=== PATIENT | female | born 1985 | race Caucasian/White ===

== ENCOUNTER 2016-12-14 12:20 | Inpatient (IN) | payer MEDICAID ==
[~2016-12-14] VITALS: Ht 143.5 cm; Wt 72.2 kg
[2016-12-14] MEDS ORDERED: PRENAT PO (13:02)
[2016-12-14] MEDS ORDERED: FERR236T PO (13:03)
[2016-12-14] MEDS ORDERED: CALC600T11 PO (13:03)
[2016-12-14 13:04] VITALS: BP 118/78; PULSE 97; RESP 18
--- NOTE | 2016-12-14 13:41 | RADRPT ---
PROCEDURE: US biophysical profile. CLINICAL INDICATION: Decreased motion. Contractions. TECHNIQUE: Multiple sonographic images of the uterus were obtained. The images were revi ewed on a PACS workstation. COMPARISON: No prior studies are available for comparison. FINDINGS: There is a single live intrauterine gestation. heart rate is 134 beats per minute. The position is cephalic. The placenta is fundal anterior grade II with no abruption or previa. The KYA is 8.7 cm. (Normal = 5-20 cm.) Breathing Movement: 2 Gross Body Movement: 2 Tone: 2 Qualitative Amniotic Fluid Volume: 2 TOTAL: 8 IMPRESSION: 1. The biophysical score is 8/8. RPTAT: QQ .Robel Lopez MD, MD Date Time Electronically viewed and signed by .Robel Lopez MD, on 12/14/2016 13:40 .R/
--- NOTE | 2016-12-14 14:52 | TRIAGE ---
OB Triage Datetime Report Generated by CPN: 12/14/2016 14:52 Datetime: 12/14/2016 14:35 Labor Evaluation Frequency: 12-13 Monitor Mode: External Duration (sec)2399: 120-150 Quality: Mild Pattern: Normal: <= 5 Contractions in 10 Minutes Resting Tone [place]: Relaxed Heart Rate FHR Baseline Rate: 130 Monitor Mode: External US FHR Baseline Changes: No Baseline Change Variability: Moderate 6-25 bpm Accelerations: 15X15 Decelerations: None Category: Category I Datetime: 12/14/2016 14:01 Labor Evaluation Frequency: 5-12 Monitor Mode: External Duration (sec)2399: 50-100 Quality: Mild Pattern: Normal: <= 5 Contractions in 10 Minutes Resting Tone [place]: Relaxed Heart Rate FHR Baseline Rate: 125 FHR Baseline Changes: No Baseline Change Variability: Moderate 6-25 bpm Accelerations: 15X15 Decelerations: None Category: Category I Pain Assessment Pain Scale: 6 Pain Presence: Intermittent Pain Type: Contraction Pain Location: Abdomen Datetime: 12/14/2016 13:12 Pool: Negative Datetime: 12/14/2016 12:51 Vaginal Exam Dilatation (cms): 0.5 Effacement (%): 40 Station: -2 Exam By: CK Vaginal Bleeding: None Cervix, Consistency: Moderate Cervix, Position: Posterior Datetime: 12/14/2016 12:41 Time of Arrival: 12/14/2016 12:15 EGA: 38.5 Arrived By: Ambulatory Arrived From: Home Chief Complaint: CONTRACTIONS - PT UNSURE WHEN THEY STARTED; PAIN OF 5/10 IN LOWER AND UPPER ABDOM EN WITH CONTRACTOINS. Movement: Present Contractions: Regular Contractions: Q15MIN Rupture of Membranes: Unsure Vaginal Bleeding: None Vaginal Discharge: Denies Abdominal Trauma: Not Applicable Patient Complaints: Contractions; Epigastric Pain Additional Patient Complaints: PT REPORTS A LOT OF FLUID AT 0400, BUT NONE RIGHT NOW Time Provider Notified: 12/14/2016 12:56 Provider Notified: DR. LUI Initial Plan: EFM x2, SVE, STERILE SPEC EXAM, ROM+, BPP Datetime: 12/14/2016 12:40 Stage of : OB Triage Assessment Type: Triage Maternal Assessment Level of Consciousness: Fully Conscious Headache: Denies Blurred Vision: No Respiratory Effort: Unlabored; Regular Rhythm; Equal Expansion Breath Sounds, Left: Clear and Equal Breath Sounds, Right: Clear and Equal Nausea/Vomiting: Denies RUQ Epigastric Pain: Denies Lower Extremities Edema: Bilateral Lower Extremities Degree: 1+ Upper Extremities Edema: None Degree: None Facial Edema: None Temperature Route: Oral Fall Risk Assessment History of Falling: (0) No Secondary Diagnosis: (0) No Ambulatory Aid: (0) Bedrest/Nurse Assist IV Therapy: (0) No Gait: (0) Normal/Bedrest/Immobile Mental Status: (0) Oriented to Own Ability Fall Score: 0 Fall Risk Score Definition: No Risk: No action required Pain Assessment Pain Scale: 5 Pain Presence: Intermittent Pain Type: Contraction Pain Location: Abdomen (Annotations: WITH CONTRACTIONS, PT FEELS PAIN IN UPPER AND LOWER ABDOMEN) Presentation 'A': Cephalic
[2016-12-14] MEDS ORDERED: MISOPROSTOL 200 MCG TAB PR PRN ×2 (15:00→22:00)
[2016-12-14] MEDS ORDERED: CEFAZOLIN 2 GM/50 ML (PMX) 50 ML IV SCH (15:00)
[2016-12-14] MEDS ORDERED: METHYLERGONOVINE 0.2 MG INJ IM PRN ×2 (15:00→22:00)
[2016-12-14] MEDS ORDERED: OXYTOCIN 30 UNITS/LR 500 ML IV SCH (15:00)
[2016-12-14] MEDS ORDERED: OXYTOCIN 30 UNITS/LR 500 ML IV PRN ×2 (15:00→22:00)
[2016-12-14] MEDS ORDERED: CARBOPROST 250 MCG INJ IM PRN ×2 (15:00→22:00)
[2016-12-14] MEDS: LACTATED RINGER'S 1,000 ML IV SCH ×3 (15:35→21:57)
[2016-12-14 15:36] LABS: ADD SCAN DIFF NO
[2016-12-14 15:42] LABS: BASOPHILS % 0.1 % (0.0-2.0); EOSINOPHILS % 0.4 % (0.0-7.0); HEMATOCRIT 42.2 % (37.0-47.0); HEMOGLOBIN 14.4 g/dl (12.0-16.0); LYMPHOCYTES # 1.8 10^3/ul (0.8-2.9); LYMPHOCYTES % 21.6 % (15.0-51.0); MEAN CORPUSCULAR HEMOGLOBIN 29.9 pg (29.0-33.0); MEAN CORPUSCULAR HGB CONC 34.1 g/dl (32.0-37.0); MEAN CORPUSCULAR VOLUME 87.6 fl (82.0-101.0); MEAN PLATELET VOLUME 11.5 fl (7.4-10.4); MONOCYTE # 0.7 10^3/ul (0.3-0.9); MONOCYTES % 8.9 % (0.0-11.0); NEUTROPHIL # 5.7 10^3/ul (1.6-7.5); NEUTROPHILS % 68.4 % (39.0-77.0); PLATELET COUNT 262 10^3/UL (140-415); RED BLOOD COUNT 4.82 10^6/ul (4.20-5.40); RED CELL DISTRIBUTION WIDTH 13.6 % (11.5-14.5); WHITE BLOOD COUNT 8.3 10^3/ul (4.8-10.8)
[2016-12-14 15:53] LABS: INR 0.83; PROTIME 11.4 Sec (12.2-14.2); PT RATIO 0.9
[2016-12-14] MEDS ORDERED: CITRIC ACID/SODIUM CITRATE 15 ML CUP PO ONE (17:30)
[2016-12-14] MEDS ORDERED: morphine SULFATE/PF (10 MG/10 ML) INJ ONE (18:11)
[2016-12-14] MEDS ORDERED: KETOROLAC 30 MG INJ ONE (18:11)
[2016-12-14] MEDS ORDERED: OXYTOCIN 30 UNITS/LR 500 ML IV ONE ×3 (18:11→21:50)
[2016-12-14] MEDS ORDERED: METOCLOPRAMIDE 10 MG INJ ONE (18:11)
[2016-12-14] MEDS ORDERED: MEPERIDINE 100 MG INJ ONE (18:58)
[2016-12-14] MEDS ORDERED: DIPHENHYDRAMINE 50 MG INJ IV PRN ×2 (19:00→20:30)
[2016-12-14] MEDS ORDERED: METOCLOPRAMIDE 10 MG INJ IV PRN (19:00)
[2016-12-14] MEDS ORDERED: MEPERIDINE 25 MG INJ IV PRN (19:00)
[2016-12-14] MEDS ORDERED: HYDROmorphONE (0.2 MG/ML) 10ML SYG IV PRN ×3 (19:00)
--- NOTE | 2016-12-14 20:21 | HP ---
DATE OF ADMISSION: 12/14/2016 HISTORY OF PRESENT ILLNESS: The patient is a 31-year-old G6, P4 who presents at 38-1/2 weeks compla ining of uterine contractions on a regular basis, ____ vaginal bleeding, positive movement. PAST MEDICAL HISTORY: None. PAST SURGICAL HISTORY: x3. OBSTETRIC HISTORY: x2. MEDICATIONS: vitamins. VITAL SIGNS: Stable. PHYSICAL EXAMINATION: HEART: Regular rhythm. LUNGS: Clear to auscultation bilaterally. ABDOMEN: Soft, nontender. No rebound, no guarding. Fundal height is 39 cm. EXTREMITIES: There is no edema. PELVIC: Vaginal exam: Os is open 1 cm. NST is a category 1 tracing with regular uterine contracti ons. The patient complaining of 8/10 pain. ASSESSMENT: Intrauterine at 38-1/2 weeks. The patient had history previous x3, presents in early labor. The patient at this point will be consented for repeat section. The patient also desires bilateral tubal ligation. Risks of surgery discussed. Risk include infec tion, bleeding, damage to organs, possibility of blood transfusion, discussed with patient. The pat ient understands risks and consents to procedure. The patient also consents to bilateral tubal liga tion. Explained that possibly of 5 to 10 failures out of 1000 and if the patient does get possibility of ectopic . The patient understood and consents to the procedure. All questi ons were answered, and patient to the OR for repeat section. Dictated By: NARINDER ESTRELLA MD /NTS Conf#: [id number] DID#: [id number]
[2016-12-14] MEDS ORDERED: HYDROmorphONE 1 MG/ML SYG IV PRN ×3 (20:30)
[2016-12-14] MEDS ORDERED: ONDANSETRON 4 MG INJ IV PRN (20:30)
[2016-12-14] MEDS ORDERED: NALOXONE (0.4 MG/ML) INJ IV PRN (20:30)
[2016-12-14] MEDS: ONDANSETRON 4 MG INJ IV PRN ×2 (20:49→22:01)
--- NOTE | 2016-12-14 21:25 | OPR ---
DATE OF OPERATION: PREOPERATIVE DIAGNOSES: 1. Uterine at 38-5/7 weeks. 2. Labor. 3. History of section x3. The patient desires repeat. 4. The patient desires a permanent form of sterilization. POSTOPERATIVE DIAGNOSES: 1. Uterine at 38-5/7 weeks. 2. Labor. 3. History of section x3. The patient desires repeat. 4. The patient desires a permanent form of sterilization. OPERATION PERFORMED: 1. Repeat low segment transverse uterine section. 2. Lysis of adhesions. FINDINGS: 1. Viable . 2. Normal tubes and ovaries. 3. Dense mid and upper uterine adhesions to the upper abdominal wall, also omental adhesions to the upper abdominal wall. SURGEON: Jono Estrella MD PLUSH CUTTER: Aide Boyd MD COMPLICATIONS: None. SPECIMENS: Placenta. ESTIMATED BLOOD LOSS: 800 URINE OUTPUT: Adequate. INDICATIONS: The patient is a 31-year-old G6, P3 who presented at 38-1/2 weeks in labor. The patie nt had a history of C-sections x3 and desired repeat. PROCEDURE: The patient brought to the operating room, where spinal was found to be adequate. The p atient was then prepped, draped in normal sterile fashion. ID was confirmed. Using a scalpel, a Pf annenstiel incision made on the patient, taken down to underlying fascia. The fascia nicked in midl ine and extended laterally on both sides using the [place] scissors. The fascia taken off the rectus m uscles superiorly, midline identified, peritoneum entered bluntly. At this point, it was noted that the patient had dense omental and uterine adhesions to the upper abdominal wall. These omental adh esions were taken down until a low segment incision could be done in the uterus. The adhesions were all ligated with 0 Monocryl. Low segment incision made on uterus. Uterine incision was then exten ded laterally with bandage scissors. 's head was delivered atraumatically, bulb suctioned on perineum, rest of the infant delivered. Cord cut and clamped. Placenta was then delivered. Uterus exteriorized, cleared of all blood clots and debris. There were dense adhesions of lower uterine s egment, also to the upper abdominal wall. The uterine incision was closed with 0 Vicryl in running fashion. A second imbricating layer of 0 Monocryl was also placed. Good hemostasis was noted. Nex t, a 2 cm segment of the right fallopian tube was ligated and cut using a modified [place] method. In similar fashion, 2 cm segment of the left fallopian tube was ligated and cut using modified [place] method. Good hemostasis was noted. Uterus placed back in abdominal cavity. The blood was clear ed from the gutters. The uterine incision was clean, dry and intact. Both tubal ligation sites wer e clean, dry and intact. Surgicel was placed on the uterine incision. The rectus muscles, peritone um were brought back together transversely using 2-0 chromic. The fascia was closed with 0 Vicryl. The skin was closed with jessi. The patient tolerated procedure well. Lap and needle counts wer e correct x2. The patient stable to recovery. Dictated By: JONO ESTRELLA MD /NTS Conf#: [id number] DID#: [id number]
[2016-12-14] MEDS ORDERED: IBUPROFEN 800 MG TAB PO SCH (22:00)
[2016-12-14] MEDS ORDERED: LANOLIN 7 GM TUBE TOP PRN (22:00)
[2016-12-14] MEDS ORDERED: ACETAMINOPHEN/CODEINE #3 TAB PO PRN (22:00)
[2016-12-14] MEDS ORDERED: ONDANSETRON 4 MG INJ ONE (22:01)
[2016-12-14 22:22] VITALS: BP 105/65; PULSE 88
[2016-12-14 22:35] VITALS: BP 99/62; PULSE 76; RESP 18
[2016-12-14 22:50] VITALS: BP 102/50; PULSE 78; RESP 18
[2016-12-14] MEDS: OXYTOCIN 30 UNITS/LR 500 ML IV SCH (22:57)
[2016-12-14 23:20] VITALS: BP 98/69; PULSE 80; RESP 18
[2016-12-14 23:50] VITALS: BP 97/52; PULSE 75; RESP 18
[2016-12-15 00:22] VITALS: BP 96/62; PULSE 78; RESP 18
[2016-12-15] MEDS: KETOROLAC 30 MG INJ IV PRN ×3 (00:35→14:44)
[2016-12-15] MEDS: OXYTOCIN 30 UNITS/LR 500 ML IV SCH (03:04)
[2016-12-15 03:50] VITALS: BP 99/56; PULSE 81; RESP 18
[2016-12-15] MEDS: IBUPROFEN 800 MG TAB PO SCH ×3 (06:00→22:33)
[2016-12-15] MEDS: LACTATED RINGER'S 1,000 ML IV SCH ×3 (06:29→21:57)
[2016-12-15 07:40] VITALS: BP 84/46; PULSE 81; RESP 18
[2016-12-15 08:16] LABS: ADD SCAN DIFF NO
[2016-12-15 08:18] LABS: BASOPHILS % 0.1 % (0.0-2.0); HEMATOCRIT 34.8 % (37.0-47.0); HEMOGLOBIN 11.6 g/dl (12.0-16.0); LYMPHOCYTES # 1.5 10^3/ul (0.8-2.9); LYMPHOCYTES % 13.6 % (15.0-51.0); MEAN CORPUSCULAR HEMOGLOBIN 29.7 pg (29.0-33.0); MEAN CORPUSCULAR HGB CONC 33.3 g/dl (32.0-37.0); MEAN CORPUSCULAR VOLUME 89.2 fl (82.0-101.0); MEAN PLATELET VOLUME 11.2 fl (7.4-10.4); MONOCYTE # 0.9 10^3/ul (0.3-0.9); MONOCYTES % 8.3 % (0.0-11.0); NEUTROPHIL # 8.5 10^3/ul (1.6-7.5); NEUTROPHILS % 77.4 % (39.0-77.0); PLATELET COUNT 217 10^3/UL (140-415); RED CELL DISTRIBUTION WIDTH 13.7 % (11.5-14.5); WHITE BLOOD COUNT 10.9 10^3/ul (4.8-10.8)
[2016-12-15] MEDS: MULTIVIT/MIN/FOLATE/IRON/PREN TAB PO SCH (08:30)
--- NOTE | 2016-12-15 09:49 | PN ---
Date/Time of Note Date/Time of Note DATE: 12/15/16 TIME: 09:48 OB Subjective Subjective Subjective Post day 1 Afebrile vital signs stable abdomen soft bowel sounds present lochia moderate incision dry ambulation encouraged. Laboratory Tests Test 12/14/16 13:13 12/14/16 15:15 12/14/16 15:55 12/15/16 08:00 Membranes Rupture NEGATIVE White Blood Count 8.310^3/ul 10.910^3/ul Red Blood Count 4.8210^6/ul 3.9010^6/ul Hemoglobin 14.4g/dl 11.6g/dl Hematocrit 42.2% 34.8% Mean Corpuscular Volume 87.6fl 89.2fl Mean Corpuscular Hemoglobin 29.9pg 29.7pg Mean Corpuscular Hemoglobin Concent 34.1g/dl 33.3g/dl Red Cell Distribution Width 13.6% 13.7% Platelet Count 41603^3/UL 01777^3/UL Mean Platelet Volume 11.5fl 11.2fl Neutrophils % 68.4% 77.4% Lymphocytes % 21.6% 13.6% Monocytes % 8.9% 8.3% Eosinophils % 0.4% 0.0% Basophils % 0.1% 0.1% Nucleated Red Blood Cells % 0.0/100WBC 0.0/100WBC Neutrophils # 5.710^3/ul 8.510^3/ul Lymphocytes # 1.810^3/ul 1.510^3/ul Monocytes # 0.710^3/ul 0.910^3/ul Eosinophils # 0.010^3/ul 0.010^3/ul Basophils # 0.010^3/ul 0.010^3/ul Nucleated Red Blood Cells # 0.010^3/ul 0.010^3/ul Prothrombin Time 11.4Sec Prothrombin Time Ratio 0.9 INR International Normalized Ratio 0.83 Activated Partial Thromboplast Time 27.0Sec Hepatitis B Surface Antigen NEGATIVE HIV (1&2) Antibody NEGATIVE Current Medications Medications (Trade) Dose Ordered Sig/Cristal Route PRN Reason Start Time Stop Time Status Last Admin Dose Admin Lactated Ringer's 1,000 ml @ 125 mls/hr Q8H IV 12/14/16 14:34 12/14/16 22:09 DC 12/14/16 17:41 Cefazolin Sodium/ Dextrose 50 ml @ 100 mls/hr ONCE IV 12/14/16 15:00 12/14/16 22:09 DC Oxytocin/Lactated Ringer's 500 ml @ 125 mls/hr ONCE IV 12/14/16 15:00 12/14/16 22:09 DC 12/14/16 21:53 Oxytocin/Lactated Ringer's 500 ml @ 0 mls/hr ONCE PRN IV For Hemorrhage Management 12/14/16 15:00 12/14/16 22:09 DC Methylergonovine Maleate (Methergine) 0.2 mg ONCE PRN IM VAGINAL BLEEDING 12/14/16 15:00 12/14/16 22:09 DC Carboprost Tromethamine (Hemabate) 250 mcg ONCE PRN IM VAGINAL BLEEDING 12/14/16 15:00 12/14/16 22:09 DC Misoprostol (Cytotec) 1,000 mcg ONCE PRN [place] VAGINAL BLEEDING 12/14/16 15:00 12/14/16 22:09 DC Citric Acid/ Sodium Citrate (Bicitra) 30 ml ONCE ONCE PO 12/14/16 17:30 12/14/16 17:31 DC 12/14/16 18:07 Hydromorphone HCl (Dilaudid (Rec)) 0.2 mg PACU ORDER PRN IV MILD PAIN LEVEL 1-3 12/14/16 19:00 12/14/16 22:09 DC Hydromorphone HCl (Dilaudid (Rec)) 0.4 mg PACU ORDER PRN IV MODERATE PAIN LEVEL 4-6 12/14/16 19:00 12/14/16 22:09 DC Hydromorphone HCl (Dilaudid (Rec)) 0.6 mg PACU ORDER PRN IV SEVERE PAIN LEVEL 7-10 12/14/16 19:00 12/14/16 22:09 DC Ondansetron HCl (Zofran Inj) 4 mg PACU ORDER PRN IV NAUSEA AND/OR VOMITING 12/14/16 19:00 12/14/16 22:09 DC 12/14/16 22:01 Metoclopramide HCl (Reglan) 10 mg PACU ORDER PRN IV NAUSEA AND/OR VOMITING 12/14/16 19:00 6/25/17 22:09 DC Meperidine HCl (Demerol) 25 mg PACU ORDER PRN IV POST-OP RIGORS 12/14/16 19:00 12/14/16 22:09 DC Diphenhydramine HCl (Benadryl) 25 mg PACU ORDER PRN IV PRURITUS 12/14/16 19:00 12/14/16 22:09 DC Naloxone HCl (Narcan) 0.1 mg Q2M PRN IV FOR RESP RATE 8 OR LESS 12/14/16 20:30 12/15/16 20:29 Ketorolac Tromethamine (Toradol) 30 mg Q6H PRN IV PAIN 12/14/16 20:30 12/15/16 20:29 12/15/16 08:31 Hydromorphone HCl (Dilaudid) 1 mg Q3H PRN IV BREAKTHROUGH PAIN 12/14/16 20:30 12/15/16 20:29 Hydromorphone HCl (Dilaudid) 0.2 mg Q3H PRN IV PAIN LEVEL 1-5 12/14/16 20:30 12/15/16 20:29 Hydromorphone HCl (Dilaudid) 0.4 mg Q3H PRN IV PAIN LEVEL 6-10 12/14/16 20:30 12/15/16 20:29 Diphenhydramine HCl (Benadryl) 25 mg Q6H PRN IV ITCHING 12/14/16 20:30 12/15/16 20:29 12/15/16 03:15 Ondansetron HCl 4 mg 4 mg Q6H PRN IV NAUSEA AND/OR VOMITING 12/14/16 20:30 12/15/16 20:29 Lactated Ringer's 1,000 ml @ 125 mls/hr Q8H IV 12/14/16 21:57 12/15/16 06:29 Oxytocin/Lactated Ringer's 500 ml @ 125 mls/hr Q4H IV 12/14/16 21:57 12/15/16 05:56 DC 12/15/16 03:04 Acetaminophen/ Codeine Phosphate (Tylenol No.3) 1 tab Q4H PRN PO PAIN LEVEL 4-6 12/14/16 22:00 Acetaminophen/ Codeine Phosphate (Tylenol No.3) 2 tab Q4H PRN PO PAIN LEVEL 7-10 12/14/16 22:00 Ibuprofen (Motrin) 800 mg Q8 PO 12/14/16 22:00 UNV Simethicone (Mylicon) 160 mg Q8H PRN PO DISTENSION/GAS/BLOATING 12/14/16 22:00 Lanolin 1 applic 1 applic BEDSIDE MEDICATION PRN TOP BEDSIDE FOR IVY TO NIPPLES 12/14/16 22:00 Oxytocin/Lactated Ringer's 500 ml @ 0 mls/hr ONCE PRN IV For Hemorrhage Management 12/14/16 22:00 Methylergonovine Maleate (Methergine) 0.2 mg ONCE PRN IM VAGINAL BLEEDING 12/14/16 22:00 Carboprost Tromethamine (Hemabate) 250 mcg ONCE PRN IM VAGINAL BLEEDING 12/14/16 22:00 Misoprostol (Cytotec) 1,000 mcg ONCE PRN [place] VAGINAL BLEEDING 12/14/16 22:00 Prenat Multivit/ Facility Maintenance Mechanic/Iron/Folic Ac ( S) 1 tab DAILY PO 12/15/16 09:00 12/15/16 08:30 Ibuprofen (Motrin) 800 mg Q8 PO 12/15/16 06:00 AMRITA LIU MD Dec 15, 2016 09:49
[2016-12-15 15:30] VITALS: BP 84/47; PULSE 82; RESP 18
[2016-12-15 19:50] VITALS: BP 92/55; PULSE 55; RESP 18
[2016-12-15] MEDS: ACETAMINOPHEN/CODEINE #3 TAB PO PRN (20:15)
[2016-12-16 04:25] VITALS: BP 90/65; PULSE 62; RESP 18
[2016-12-16] MEDS: LACTATED RINGER'S 1,000 ML IV SCH (05:57)
[2016-12-16] MEDS: IBUPROFEN 800 MG TAB PO SCH ×3 (06:22→21:29)
--- NOTE | 2016-12-16 07:13 | PN ---
Date/Time of Note Date/Time of Note DATE: 12/15/16 TIME: 07:30 Anesthesia note: A31 year ol female s/p spinal duramorph pod #1 is doing fine. pain is controlled. no n/v, itching, headache, back pain. back is clean. care per surgery team. Assessment/Plan VTE Prophylaxis VTE Prophylaxis Intervention: ambulation Lines/Catheters IV Catheter Type (from Nrsg): Peripheral IV Exam/Review of Systems Vital Signs Vitals Vital Signs Date Time Temp Pulse Resp B/P Pulse Ox O2 Delivery O2 Flow Rate FiO2 12/16/16 04:25 98.0 62 18 90/65 Room Air 12/15/16 13:27 97 21 Intake and Output 12/15/16 12/15/16 12/16/16 14:59 22:59 06:59 Intake Total 875 ml 500 ml Output Total 900 ml 1100 ml 800 ml Balance -25 ml -600 ml -800 ml Results Result Diagram: 12/15/16 0800 Results 24 hrs Laboratory Tests Test 12/15/16 08:00 White Blood Count 10.9 #H Red Blood Count 3.90 L Hemoglobin 11.6 L Hematocrit 34.8 L Mean Corpuscular Volume 89.2 Mean Corpuscular Hemoglobin 29.7 Mean Corpuscular Hemoglobin Concent 33.3 Red Cell Distribution Width 13.7 Platelet Count 217 Mean Platelet Volume 11.2 H Neutrophils % 77.4 H Lymphocytes % 13.6 L Monocytes % 8.3 Eosinophils % 0.0 Basophils % 0.1 Nucleated Red Blood Cells % 0.0 Neutrophils # 8.5 H Lymphocytes # 1.5 Monocytes # 0.9 Eosinophils # 0.0 Basophils # 0.0 Nucleated Red Blood Cells # 0.0 Medications Medications Current Medications Acetaminophen/ Codeine Phosphate (Tylenol No.3) 1 tab Q4H PRN PO PAIN LEVEL 4-6 ; Start 12/14/16 at 22:00 Acetaminophen/ Codeine Phosphate (Tylenol No.3) 2 tab Q4H PRN PO PAIN LEVEL 7- 10 Last administered on 12/15/16 20:15; Admin Dose 2 TAB; Start 12/14/16 at 22: 00 Simethicone 160 mg 160 mg Q8H PRN PO DISTENSION/GAS/BLOATING Last administered on 12/15/16 20:15; Admin Dose 160 MG; Start 12/14/16 at 22:00 Oxytocin/Lactated Ringer's 500 ml @ 0 mls/hr ONCE PRN IV For Hemorrhage Management; Start 12/14/16 at 22:00 Methylergonovine Maleate (Methergine) 0.2 mg ONCE PRN IM VAGINAL BLEEDING; Start 12/14/16 at 22:00 Carboprost Tromethamine (Hemabate) 250 mcg ONCE PRN IM VAGINAL BLEEDING; Start 12/14/16 at 22:00 Misoprostol (Cytotec) 1,000 mcg ONCE PRN [place] VAGINAL BLEEDING; Start 12/14/16 at 22:00 Prenat Multivit/ [place]/Iron/Folic Ac ( S) 1 tab DAILY PO Last administered on 12/15/16 08:30; Admin Dose 1 TAB; Start 12/15/16 at 09:00 Ibuprofen (Motrin) 800 mg Q8 PO Last administered on 12/16/16 06:22; Admin Dose 800 MG; Start 12/15/16 at 06:00 BHASKAR RINCON MD Dec 16, 2016 07:13
[2016-12-16 07:50] VITALS: BP 82/52; PULSE 81; RESP 16
[2016-12-16] MEDS: MULTIVIT/MIN/FOLATE/IRON/PREN TAB PO SCH (08:30)
[2016-12-16] MEDS: ACETAMINOPHEN/CODEINE #3 TAB PO PRN (10:17)
[2016-12-16 11:57] LABS: RUBELLA ANTIBODY - IGG <0.90 index
--- NOTE | 2016-12-16 12:22 | PN ---
Date/Time of Note Date/Time of Note DATE: 12/16/16 TIME: 12:21 OB Subjective Subjective Subjective Post day 2 Afebrile vital signs are stable abdomen soft bowel sounds present able to pass flatus no bowel movement enema ordered ambulation encouraged AMRITA LIU MD Dec 16, 2016 12:22
[2016-12-16] MEDS ORDERED: NA PHOSPHATE/BIPHOS 133 ML ENEMA PR ONE (12:30)
[2016-12-16 16:00] VITALS: BP 86/52; PULSE 81; RESP 16
[2016-12-16] MEDS ORDERED: DIPHTH/TET/ACEL PERTUSS (ADULT) 0.5 ML VIAL IM* ONE (19:00)
[2016-12-16 19:30] VITALS: BP 116/75; PULSE 87; RESP 19
[2016-12-17 04:01] VITALS: BP 100/64; PULSE 81; RESP 19
[2016-12-17] MEDS: IBUPROFEN 800 MG TAB PO SCH (05:18)
[2016-12-17 08:00] VITALS: BP 98/57; PULSE 88; RESP 18
--- NOTE | 2016-12-17 08:49 | PD.PPDC ---
[facility] Discharge Instruction Condition Patient Condition: Good Diet Diet: Resume Regular Diet Activity/Restrictions Activity: Normal Activity May Shower Restrictions: No Exercising No Lifting No Driving No Sexual Activity Nothing in the Vagina No [place] No Tampons, douche Wound/Drain Care Instructions Wound/Drain Care Instructions: Remove Steri Strips in 1 week Follow-up Follow-up with Physician: 1, Week/Weeks Provider Information: Appointment clinic in 1 week for post check Return to clinic for UX MANAGER Instructions: Fever greater than 101 Chills Worsening abdominal pain Excessive Vaginal Bleeding More than 2 pads per hour Unable to tolerate diet OB Instructions: Breast Tenderness Depression Blurried Vision Headache Surgical Instructions: Incisional Drainage Incisional Redness AMRITA LIU MD Dec 17, 2016 08:48
--- NOTE | 2016-12-17 08:51 | DS ---
Date/Time of Note Date/Time of Note DATE: 12/17/16 TIME: 08:49 Discharge Summary Admission/Discharge Info Admit Date/Time Dec 14, 2016 at 14:26 Discharge Date/Time December 17, 2016 at 0 844 Discharge Diagnosis Post day 3 Patient Condition: Good Procedures Repeat Hx of Present Illness Term history of previous Hospital Course Satisfactory uneventful Home Meds Reported Medications Calcium Carbonate* (Calcium Carbonate*) 600 MG Ca Tab, 600 MG PO DAILY, TAB 12/14/16 Ferrous Gluconate (Iron) 236 Mg Tablet, 236 MG PO DAILY, TAB 12/14/16 Multivit/Min/Fol Ac/Iron/Pren* ( S*) 1 Tab Tab, 1 TAB PO DAILY, TAB 12/14/16 Follow-up Plan Appointment clinic in 1 week to discontinue jessi Primary Care Provider Care Physician No Primary Time spent on discharge: < 30 minutes AMRITA LIU MD Dec 17, 2016 08:51
[2016-12-17] MEDS: MULTIVIT/MIN/FOLATE/IRON/PREN TAB PO SCH (09:18)
[2016-12-17] MEDS: ACETAMINOPHEN/CODEINE #3 TAB PO PRN (11:16)
== END 2016-12-17 14:00 | disposition home or self-care (01) | DRG 766 ==
LOC: OBT 12:20 → L-D 12:21 → OBT 14:21 → L-D 14:26 → PP1 22:13
PROVIDERS: ADMIT Obstetrics & Gynecology; ATTEND Obstetrics & Gynecology
PROC: 10D00Z1 Extraction of Products of Conception, Low, Open Approach (ICD-10-PCS; principal; 2016-12-14)
PROC: 0UL70ZZ Occlusion of Bilateral Fallopian Tubes, Open Approach (ICD-10-PCS; 2016-12-14)
PROC: 0DNS0ZZ (ICD-10-PCS; 2016-12-14)
DX: O34.211 Maternal care for low transverse scar from previous cesarean delivery (principal); O99.89 Other specified diseases and conditions complicating pregnancy, childbirth and the puerperium; N73.6 Female pelvic peritoneal adhesions (postinfective); Z37.0 Single live birth; Z3A.38 38 weeks gestation of pregnancy; Z30.2 Encounter for sterilization
CPT/HCPCS: 76818; 84112; 85025; 85610; 85730; 86592; 86703; 86762; 86850; 86900; 86901; 86920; 87340; 88302; 90715; 94760; 99464; G0463; J0690; J1200; J1885; J2175; J2274; J2405; J2590; J2765; J7120

== ENCOUNTER 2016-12-22 11:58 | Emergency (ER) | payer MEDICAID ==
[~2016-12-22] VITALS: Ht 152.4 cm; Wt 71.0 kg
[~2016-12-22 11:58] MED LIST: CALC600T11 PO; FERR236T PO; PRENAT PO
[2016-12-22 12:07] VITALS: Ht 152.4 cm; Wt 71.0 kg
[2016-12-22 14:23] LABS: URINE BLOOD (Dip) POC 3+ (NEGATIVE)
--- NOTE | 2016-12-22 14:26 | ERD ---
ER Documentation Chief Complaint Date/Time DATE: 12/22/16 TIME: 14:23 Chief Complaint SUTURE REMOVAL AND WOUND CHECK ON C SECTION HPI This 31-year-old female presents for evaluation of pain at her postoperative C- section site. She had her here 9 days ago. she was referred by the clinic as he did not have a provider for his staple removal. She denies any measured fevers possibly feels warm. She denies any vaginal discharge or bleeding or urinary complaints, cough, shortness breath or chest pain ROS All systems reviewed and are negative except as per history of present illness. Medications Home Meds Active Scripts Cephalexin* (Keflex*) 500 Mg Capsule, 500 MG PO QID for 5 Days, CAP Prov:ANASTASIA GARDNER MD 12/22/16 Reported Medications Calcium Carbonate* (Calcium Carbonate*) 600 MG Ca Tab, 600 MG PO DAILY, TAB 12/14/16 Ferrous Gluconate (Iron) 236 Mg Tablet, 236 MG PO DAILY, TAB 12/14/16 Multivit/Min/Fol Ac/Iron/Pren* ( S*) 1 Tab Tab, 1 TAB PO DAILY, TAB 12/14/16 Allergies Allergies: Coded Allergies: No Known Allergy (Unverified , 12/14/16) PMhx/Soc History of Surgery: Yes () Anesthesia Reaction: No Hx Neurological Disorder: No Hx Respiratory Disorders: No Hx Cardiac Disorders: No Hx Psychiatric Problems: No Hx Miscellaneous Medical Probl: No Hx Alcohol Use: No Hx Substance Use: No Hx Tobacco Use: No Smoking Status: Never smoker Physical Exam Vitals Vital Signs Date Time Temp Pulse Resp B/P Pulse Ox O2 Delivery O2 Flow Rate FiO2 12/22/16 12:07 97.9 88 18 120/73 98 Physical Exam Const: [] [place], [id number] Head: Atraumatic Eyes: Normal Conjunctiva ENT: Normal External Ears, Nose and Mouth. Neck: Full range of motion..~ No meningismus. Resp: Clear to auscultation bilaterally Cardio: Regular rate and rhythm, no murmurs Abd: Soft, non tender, non distended. Normal bowel sounds. There is a healing site without erythema or deep abdominal tenderness. Skin: No petechiae or rashes Back: No midline or flank tenderness Ext: No cyanosis, or edema Neur: Awake and alert Psych: Normal Mood and Affect Results 24 hrs Laboratory Tests Test 12/22/16 14:27 Bedside Urine pH (LAB) 5.5 Bedside Urine Protein (LAB) Trace Bedside Urine Glucose (UA) Negative Bedside Urine Ketones (LAB) Negative Bedside Urine Blood 3+ Bedside Urine Nitrite (LAB) Negative Bedside Urine Leukocyte Esterase (L 3+ Current Medications Medications (Trade) Dose Ordered Sig/Cristal Route PRN Reason Start Time Stop Time Status Last Admin Dose Admin Cephalexin (Keflex) 500 mg ONCE ONCE PO 12/22/16 14:30 12/22/16 14:31 Procedures/MDM Bello were removed and Steri-Strips are placed upon request by the clinic. Review of the medical record shows that discharge summary recommend staple removal in 7 days . urine shows positive leukocytes. Patient presents with postoperative pain and staple removal by request from her clinic. She has signs of UTI will be treated for this. There is no signs or symptoms of deep abdominal tenderness or suggestion of acute abdomen or abscess. Patient should return for fevers which are measured, vomiting, new worsening symptoms or with OB this week. She will treated with Keflex at home. Departure Diagnosis: Primary Impression: Encounter for removal of bello Additional Impression: UTI (urinary tract infection) Urinary tract infection type: acute cystitis Hematuria presence: without hematuria Qualified Code: N30.00 - Acute cystitis without hematuria Condition: Stable ANASTASIA GARDNER MD Dec 22, 2016 14:26
[2016-12-22] MEDS ORDERED: CEPH-443 PO (14:27)
[2016-12-22] MEDS ORDERED: CEPHALEXIN 500 MG CAP PO ONE (14:30)
== END 2016-12-22 14:46 | disposition home or self-care (01) ==
LOC: FTE 11:58
DX: Z48.02 Encounter for removal of sutures (principal); N30.00 Acute cystitis without hematuria
CPT/HCPCS: 81003; Z7502; Z7610; 99283